=== PATIENT | female | born 2000 | race Caucasian/White ===

== ENCOUNTER 2025-03-19 14:10 | Outpatient (CLI) | payer BC, SELFPAY ==
--- NOTE | 2025-03-19 14:00 | CRLHL7_ITS ---
For Patients: As a result of the Century Cures Act, medical imaging exams and procedure reports are released immediately into your electronic medical record. You may view this report before your referring provider. If you have questions, please contact your health care provider. OB ULTRASOUND < 14 WEEKS CLINICAL INDICATION: Dating and Viability. Surgery: 0. Imaging: Transabdominal. LMP: 12/23/2024. DIONISIO by LMP: 09/29/2025. GA: 12 weeks, 2 days. Previous US: No. CRL: 3.2 cm, 10 weeks 1 day, DIONISIO 10/14/2025. FHR: 176 bpm. Gestational Sac: 3.7 cm, appears within normal limits. Yolk Sac: 4.9 mm, appears within normal limits. Right Ovary: 3.4 x 2.1 x 2.3 cm. Left Ovary: 2.8 x 2.2 x 2.3 cm. IMPRESSION: 1. Sonographic gestational age 10 weeks 1 day and sonographic due date 10/14/2025. 2. Subchorionic hemorrhage measures 1.2 x 2.3 x 2.3 cm. Zain Moore M.D. Diagnostic Radiologist [email or web address] DW/Dictated by: Zain Moore MD @ 03/20/2025 7:11:00 AM (Electronically Signed)
== END 2025-03-19 14:11 | disposition home or self-care (01) ==
LOC: US 14:10
PROVIDERS: Visit Provider Registered Nurse
DX: O20.9 Hemorrhage in early pregnancy, unspecified (principal); Z3A.10 10 weeks gestation of pregnancy; Z12.4 Encounter for screening for malignant neoplasm of cervix
CPT/HCPCS: 76801; 76817

== ENCOUNTER 2025-03-19 15:04 | Outpatient (CLI) | payer BC, SELFPAY ==
[2025-03-19 20:39] LABS: Chlamydia DNA Amplified* NOT DETECTED (No Detected); GC DNA Amplified* NOT DETECTED (No Detected)
[2025-03-23 13:48] LABS: Pap Test Digital Imaging Done
== END 2025-03-19 15:05 | disposition home or self-care (01) ==
PROVIDERS: Visit Provider Registered Nurse
DX: Z12.4 Encounter for screening for malignant neoplasm of cervix (principal)
CPT/HCPCS: 82565; 82570; 83020; 83021; 84156; 84450; 84460; 84520; 85660; 86592; 86703; 86704; 86706; 86762; 86787; 86803; 86850; 86900; 86901; 87086; 87340; 87491; 87591; 87624; 87625; 88141; 88142; 88175

== ENCOUNTER 2025-05-28 12:49 | Outpatient (CLI) | payer BC, SELFPAY ==
--- NOTE | 2025-05-28 13:00 | CRLHL7_ITS ---
For Patients: As a result of the Century Cures Act, medical imaging exams and procedure reports are released immediately into your electronic medical record. You may view this report before your referring provider. If you have questions, please contact your health care provider. OB ULTRASOUND GREATER THAN 14 WEEKS CLINICAL HISTORY: anatomy. TECHNIQUE: Real time mcgowan scale imaging of the fetus was performed. Transabdominal imaging performed. FINDINGS: DIONISIO by US: 10/14/2025. GA: 20 weeks 1 day. Position: Breech. Cervix: Visualized. Technique: TA. Length of closed cervix: 4.1 cm. Placenta/Cord: Posterior. Technique: TA. Placenta tip to internal OS: 4.4 cm. Umbilical Cord: 3 vessel cord. Placental Insertion: Central. Amniotic Fluid: 3.8 cm SDP. Observed Structures Calvarium/Spine: Cerebellum: 1.9 cm, 19 weeks 5 days Cisterna Magna: 3.3 mm Nuchal Fold: 3.8 mm Lateral Ventricle: 6.0 mm CSP Choroid Plexus Midline Falx Spine Abdomen: Stomach Abd Cord Insert Urinary Bladder Kidneys Diaphragm Face: Nose/Lips Orbital view Profile Limbs: Upper Extremities Lower Extremities Hands Feet BIOMETRY BPD: 4.5 cm, 19 weeks 4 days. 24.2% HC: 17.2 cm, 19 weeks 6 days. 26.1% AC: 14.8 cm, 20 weeks 0 days. 40.8% FL: 3.2 cm 19 weeks 6 days. 34.3% FL/AC: 21.60% HC/AC Ratio: 1.17. Heart Rate: 152 bpm. Age by this US: 19 weeks 6 days. DIONISIO by this US: 10/16/2025. EFW: 323.24 grams, 0 lbs 11 oz. Percentile by DIONISIO: 34.8% IMPRESSION: 1. Incomplete visualization of the four chamber heart, LVOT and RVOT. Remainder of the anatomic survey is normal. Short-term follow-up recommended. 2. Concordance of clinical and sonographic dating. Zain Moore M.D. Diagnostic Radiologist [email or web address] [email or web address] Transcribed: 11:38 am DW/Dictated by: Zain Moore MD @ 05/31/2025 11:17:00 AM (Electronically Signed)
== END 2025-05-28 12:50 | disposition home or self-care (01) ==
LOC: US 12:49
PROVIDERS: Visit Provider Advanced Practice Midwife
DX: Z34.92 Encounter for supervision of normal pregnancy, unspecified, second trimester (principal); Z3A.20 20 weeks gestation of pregnancy
CPT/HCPCS: 76805

== ENCOUNTER 2025-06-11 09:08 | Outpatient (CLI) | payer BC, SELFPAY ==
--- NOTE | 2025-06-11 09:15 | CRLHL7_ITS ---
For Patients: As a result of the Century Cures Act, medical imaging exams and procedure reports are released immediately into your electronic medical record. You may view this report before your referring provider. If you have questions, please contact your health care provider. OB ULTRASOUND FOLLOW-UP LIMITED CLINICAL HISTORY: Inadequate heart views. TECHNIQUE: Real time mcgowan scale imaging of the fetus was performed. Transabdominal imaging performed. COMPARISON: 05/28/2025, 03/19/2025. FINDINGS: DIONISIO by LMP: 10/14/2025. GA: 22 weeks 0 days. Cervix: Visualized. Positioning: Breech. Amniotic Fluid: 4.3 cm SDP. Placenta: Technique: TA. Placenta Position: Posterior. Dopplers: Heart Rate: 142 bpm. 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 Recommend echocardiogram with MFM consult. Zain Moore M.D. Diagnostic Radiologist [email or web address] Transcribed: 12:37 pm DW/Dictated by: Zain Moore MD @ 06/11/2025 12:21:00 PM (Electronically Signed)
== END 2025-06-11 09:09 | disposition home or self-care (01) ==
LOC: US 09:08
PROVIDERS: Visit Provider Midwife
DX: O35.BXX0 Maternal care for other (suspected) fetal abnormality and damage, fetal cardiac anomalies, not applicable or unspecified (principal); Z3A.22 22 weeks gestation of pregnancy
CPT/HCPCS: 76816

== ENCOUNTER 2025-07-23 08:19 | Outpatient (CLI) | payer BC, SELFPAY | END 2025-07-23 08:20 | disposition home or self-care (01) | LOC: NFLDREF 08:20 | PROVIDERS: Visit Provider Midwife | DX: Z34.93 Encounter for supervision of normal pregnancy, unspecified, third trimester (principal) | CPT/HCPCS: 86780 ==